=== PATIENT | female | born 1990 | race Caucasian/White ===

== ENCOUNTER 2021-06-08 18:12 | Observation (INO) | END 2021-06-08 19:21 | disposition home or self-care (01) | LOC: 1NENULAB | PROVIDERS: ADMIT Student in an Organized Health Care Education/Training Program; ATTEND Student in an Organized Health Care Education/Training Program ==

== ENCOUNTER 2021-06-23 10:01 | Inpatient (IN) ==
[2021-06-23] MEDS ORDERED: Lidocaine 1% 20 ML MDV ID PRN (10:47)
[2021-06-23] MEDS ORDERED: miSOPROStoL 25 MCG TABLET PO PRN (10:47)
[2021-06-23] MEDS ORDERED: Naloxone 0.4 MG/ML INJ IVP PRN (10:47)
[2021-06-23] MEDS ORDERED: *HR* Nalbuphine 10 MG/ML AMPUL IV PRN (10:47)
[2021-06-23] MEDS ORDERED: Famotidine 20 MG/2 ML VIAL IVP PRN (10:47)
[2021-06-23] MEDS ORDERED: Ondansetron 4 MG/2 ML VIAL IVP PRN (10:47)
[2021-06-23] MEDS ORDERED: Azithromycin 500 MG in 0.9 % Sodium Chloride 250 ML IVPB PRN (10:47)
[2021-06-23] MEDS ORDERED: Metoclopramide 10 MG/2 ML VIAL IVP PRN (10:47)
[2021-06-23] MEDS ORDERED: Oxytocin 20 units/ LR 1000 mL 20 UNIT/1,000 ML BAG IVC SCH (11:00)
[2021-06-23 12:24] LABS: Basophils % 0.3 %; Eosinophils # 0.1 K/mcL (0.0-0.6); Eosinophils % 0.5 %; Hemoglobin 11.7 g/dL (11.5-15.4); Immature Granulocytes % 0.6 % (0-4); Lymphocytes % 18.9 %; Mean Corpuscular HGB Conc 33.4 g/dL (31.6-35.5); Mean Corpuscular Hemoglobin 30.6 pg (28.0-33.3); Mean Corpuscular Volume 91.6 fL (83.0-100.0); Mean Platelet Volume 12.8 fL (9.4-12.4); Monocytes # 0.6 K/mcL (0.0-1.3); Monocytes % 5.6 %; Neutrophils # 7.9 K/mcL (1.6-8.9); Platelet Count 165 K/mcL (140-400); Red Blood Count 3.82 M/mcL (3.82-4.97); Red Cell Distribution Width 12.9 % (11.5-14.5); Segmented Neutrophils % 74.1 %; White Blood Count 10.6 K/mcL (4.3-11.1)
[2021-06-23 12:39] LABS: Amphetamine Screen,Urine Negative ng/mL (Cutoff=1000); Barbiturate Screen,Urine Negative ng/mL (Cutoff=200); Benzodiazepines Screen,Urine Negative ng/mL (Cutoff=200); Cannabinoid Screen,Urine Negative ng/mL (Cutoff = 50); Cocaine Screen,Urine Negative ng/mL (Cutoff= 300); Opiate Screen,Urine Negative ng/mL (Cutoff=300); Phencyclidine Screen,Urine Negative ng/mL (Cutoff=25)
[2021-06-23 12:55] LABS: Influenza A PCR Negative (Negative); Influenza B PCR Negative (Negative); Resp. Syncytial Virus PCR Negative (Negative)
[2021-06-23 13:02] LABS: SARS-CoV-2 by PCR (In House) Negative (Negative)
[2021-06-23] MEDS ORDERED: EPHEDrine 50 MG/ML VIAL IVP PRN (13:09)
[2021-06-23] MEDS ORDERED: *HR* FentaNYL (PF) 100 MCG/2 ML VIAL EP ONE (13:09)
[2021-06-23] MEDS ORDERED: *HR* FentaNYL (PF) 100 MCG/2 ML VIAL ONE ×2 (13:13→19:03)
[2021-06-23] MEDS ORDERED: Epidural Premix (fent/bupiv) 110 ML EP SCH (13:15)
[2021-06-23 14:02] LABS: Varicella Zoster IgG Antibody Positive
[2021-06-23 14:03] LABS: Rubella IgG Antibody POSITIVE (POSITIVE)
[2021-06-23 14:18] LABS: Hepatitis B Surface Antigen Nonreactive (Nonreactive)
[2021-06-23 14:47] LABS: HIV-1&2 Antibody & p24 Ag Nonreactive (Nonreactive)
[2021-06-23] MEDS: Ringers Solution, Lactated 1,000 ML IVC SCH (16:43)
[2021-06-23] MEDS ORDERED: Ropivacaine/PF 0.2% 20 ML VIAL ONE (19:04)
[2021-06-23] MEDS ORDERED: Rho Immune Globulin 1,500 UNIT SYRINGE IM PRN (23:19)
[2021-06-23] MEDS ORDERED: Measles/Mumps/Rubella Vacc 0.5 ML VIAL SQ PRN (23:19)
[2021-06-23] MEDS ORDERED: Acetaminophen 325 MG TABLET PO PRN (23:19)
[2021-06-23] MEDS ORDERED: Ibuprofen 600 MG TABLET PO PRN (23:19)
[2021-06-23] MEDS: Oxytocin 20 units/ LR 1000 mL 20 UNIT/1,000 ML BAG IVC SCH (23:54)
[2021-06-24] MEDS: Ringers Solution, Lactated 1,000 ML IVC SCH (05:14)
[2021-06-24 07:31] LABS: Eosinophils % 0.3 %; Monocytes % 6.8 %
[2021-06-24 07:33] LABS: Basophils % 0.1 %; Hematocrit 28.4 % (35.3-44.9); Hemoglobin 9.5 g/dL (11.5-15.4); Immature Granulocytes % 0.4 % (0-4); Immature Platelets 11.6 % (1.1-6.1); Lymphocytes # 2.1 K/mcL (0.6-4.6); Lymphocytes % 15.7 %; Mean Corpuscular HGB Conc 33.5 g/dL (31.6-35.5); Mean Corpuscular Hemoglobin 30.6 pg (28.0-33.3); Mean Corpuscular Volume 91.6 fL (83.0-100.0); Mean Platelet Volume 12.3 fL (9.4-12.4); Monocytes # 0.9 K/mcL (0.0-1.3); Neutrophils # 10.4 K/mcL (1.6-8.9); Platelet Count 149 K/mcL (140-400); Red Cell Distribution Width 12.8 % (11.5-14.5); Segmented Neutrophils % 76.7 %; White Blood Count 13.5 K/mcL (4.3-11.1)
[2021-06-24] MEDS: Oxytocin 20 units/ LR 1000 mL 20 UNIT/1,000 ML BAG IVC SCH (08:31)
[2021-06-24] MEDS ORDERED: Prenatal Vit/FA 1 EACH TABLET PO SCH (09:00)
[2021-06-24] MEDS ORDERED: NON-FORMULARY MEDICATION 1 EACH EACH (Pnv No.95/Ferrous Fum/Folic Ac [Prenatal Caplet] 1 E PO SCH (09:00)
[2021-06-24 14:42] VITALS: O2SAT 100
[2021-06-24 19:59] VITALS: BP 105/67; PULSE 85; TEMP 98.1
== END 2021-06-24 21:25 | disposition home or self-care (01) | DRG 807 ==
LOC: 1NENULAB 10:01 → 1NENUOBS 06-24 05:39
PROVIDERS: ADMIT Obstetrics & Gynecology; ATTEND Obstetrics & Gynecology